=== PATIENT | female | born 1995 | race Caucasian/White ===

== ENCOUNTER → 2017-07-11 | Outpatient (CLI) | payer BC ==
[~2017-07-11] MED LIST: BCPILLS PO; CETI10TA84 PO; MONT1TAB3 PO
--- NOTE | 2017-07-11 08:44 | DIAGNOSTIC IMAGING REPORT ---
MRI OF THE LEFT ELBOW WITHOUT IV CONTRAST CLINICAL HISTORY: Left elbow pain. COMPARISON STUDY: Radiographs of left elbow dated 07/07/2017. TECHNIQUE: MRI of the left elbow is performed utilizing various T1 and T2-weighted sequences in the axial, sagittal, and coronal planes. IV contrast was not administered for this examination. FINDINGS: There is no MRI evidence of fracture. Bony contusion is seen within the lateral humeral epicondyle. The joint spaces are preserved. The articular cartilage appears intact. No joint effusion is identified. The triceps tendon at its insertion appears intact, as does the long head of the biceps tendon. The common extensor tendon and the radial collateral ligament appear maintained. There is full-thickness rupture of the ulnar collateral ligament at the humeral insertion. There is partial-thickness tearing of the common flexor tendon. The majority of the fibers are intact. The regional musculature is normal in bulk. There is intramuscular edema seen within the flexor musculature adjacent to the medial joint space. Mild overlying soft tissue edema is present in the medial elbow. No joint body is clearly identified. Small calcifications seen by x-ray likely represent dystrophic calcifications. IMPRESSION: 1. There is no MRI evidence of left elbow fracture. Bony contusion is noted within the lateral humeral epicondyle. 2. There has been rupture of the ulnar collateral ligament at the humeral insertion. 3. There is partial thickness tearing of the common flexor tendon. The majority of the fibers remain intact. 4. Intramuscular edema is seen within the flexor musculature along the medial aspect of the joint space. There is also mild overlying soft tissue edema. Dictated: 07/11/2017 8:10 AM Transcribed: 07/11/2017 8:43 AM [employer] Electronically signed by: Andrés Mejia M.D. 07/11/2017 8:53 AM Dictated Date/Time: 07/11/2017 8:10 AM
== END | disposition home or self-care (01) ==
LOC: C.MRIBC 07:06
PROVIDERS: ATTEND Orthopaedic Surgery
DX: S53.32XA Traumatic rupture of left ulnar collateral ligament, initial encounter (principal); S56.212A Strain of other flexor muscle, fascia and tendon at forearm level, left arm, initial encounter; X58.XXXA Exposure to other specified factors, initial encounter; R60.0 Localized edema

== ENCOUNTER 2017-10-05 14:40 | Emergency (ER) | payer BC ==
[~2017-10-05] VITALS: Ht 160 cm; Wt 68.9 kg
[2017-10-05 14:52] VITALS: TEMP 36.9; Ht 160 cm; Wt 68.9 kg
--- NOTE | 2017-10-05 15:03 | EMERGENCY ROOM VISIT NOTE ---
ED Visit Note First contact with patient: 15:00 CHIEF COMPLAINT: Toe injury today HISTORY OF PRESENT ILLNESS: This 22-year-old female presents to the emergency department with complaint of right great toe pain. She states that she stubbed her toe while walking up steps last night, with immediate bleeding from the toe. She reports several injuries to this toe in the past from either stopping the toe or the toe being stepped on, most recently 1 week ago. She states after stubbing her toe that the nail seemed to be loose. There is pain with weight bearing but she is able to move the toe fairly normally. The toenail is at the base. The bleeding has stopped. Her tetanus is up-to-date. She denies any other associated injuries, denies foot or ankle pain, knee pain, hip pain, dizziness or syncope, fevers or chills. REVIEW OF SYSTEMS: A complete 6 point review of systems was reviewed with the patient with pertinent positives and negatives as per history of present illness. All else were negative. PMH: The patient is healthy; there is no significant medical or surgical history. SOCIAL HISTORY: Patient lives at home. She is a [employer] student. She denies tobacco use. PHYSICAL EXAM: Vital Signs: Reviewed Nurse's notes. The ankle joint is not swollen or tender. The foot is not swollen and the skin is intact. The right great toe is slightly swollen and tender along the shaft from the DIP joint to the tip and the nail is avulsed at the base. There is no active bleeding and no significant laceration. IMAGING: R TOE(S) MIN 2 VIEWS HISTORY: 22 years-old Female right great toenail avulsion, eval fx acute right great toe pain status post trauma COMPARISON: None available TECHNIQUE: 3 views of the right toes with attention to the first digit FINDINGS: A true lateral film was not obtained. Lucency beneath the nailbed suggest nailbed injury. No acute fracture, subluxation or significant degenerative changes. No opaque foreign body. IMPRESSION: 1. Suggested acute nailbed injury. 2. No acute fracture or subluxation. EMERGENCY DEPARTMENT COURSE: I examined the patient. Differential diagnosis includes toenail avulsion, nail bed laceration, open fracture, contusion, subungual hematoma, among others. An X-Ray of the toe is negative for fractures. I obtained verbal consent from the patient to perform the procedure. The base of the toe was cleansed with saline and Betadine, and a digital block of the right great toe was performed utilizing 1% buffered lidocaine. Once complete anesthesia was achieved, the nail plate was lifted up off of the nail bed. There is avulsed tissue of the nailbed, but no visible laceration and nothing to repair. The nailbed was copiously irrigated and this toenail was cleaned, the nail plate was then replaced under the nail fold in its anatomic position and tacked down on either side with 5-0 nylon suture. Hemostasis was achieved. The entire nail and toe was then irrigated with saline. The toe was then dressed with bacitracin and an occlusive dressing. Patient tolerated the procedure well with no complication. Patient was educated regarding wound care and concerning signs/symptoms to watch for, and encouraged to follow closely with her primary care provider, she verbalized understanding. The patient was discharged home in stable condition and ambulatory. Current/Historical Medications Scheduled Cetirizine (Zyrtec), 10 MG PO QAM Scheduled PRN Albuterol Hfa (Ventolin Hfa), 2 PUFFS INH Q6H PRN for SOB/Wheezing Allergies Coded Allergies: No Known Allergies (Unverified , 10/27/14) Vital Signs Date Time Temp Pulse Resp B/P (MAP) Pulse Ox O2 Delivery O2 Flow Rate FiO2 10/05/17 17:28 78 18 121/99 95 Room Air 10/05/17 15:28 90 18 116/79 99 Room Air 10/05/17 14:52 36.9 116 18 130/91 98 Room Air Medications Administered Medications (Trade) Dose Ordered Sig/Gregorio Route Start Time Stop Time Status Last Admin Dose Admin Ibuprofen (Motrin Tab) 600 mg NOW STAT PO 10/05/17 15:10 10/05/17 15:12 DC 10/05/17 15:30 600 MG Departure Information Impression Primary Impression: Toenail avulsion Dispostion Home / Self-Care Condition GOOD Referrals No Doctor, Assigned (PCP) Patient Instructions ED Avulsion Nail Complete, My [facility] Additional Instructions Stay off the foot as much as possible and keep it elevated. Ibuprofen 600mg every 6-8 hours as needed for the pain. Change the dressing daily and watch for signs of infection. Leave the nail plate on until seeing your Primary Care Provider in about 4 - 5 days. The sutures should be removed in 7 days. Please return to the ER for any signs of infection, including increasing pain, redness, swelling, pus drainage, streaking up the foot, fevers/chills, or any other concerns. Problem Qualifiers Primary Impression: Toenail avulsion Encounter type: initial encounter Qualified Codes: S91.209A - Unspecified open wound of unspecified toe(s) with damage to nail, initial encounter
[2017-10-05] MEDS ORDERED: IBUPROFEN 600 MG TAB PO STA (15:10)
[2017-10-05] MEDS ORDERED: XYLOCAINE 1%/SOD BICARB 20 ML VIAL INFIL ONE (15:15)
[2017-10-05] MEDS ORDERED: VNTHFA/IN INH (15:45)
--- NOTE | 2017-10-05 16:05 | DIAGNOSTIC IMAGING REPORT ---
R TOE(S) MIN 2 VIEWS HISTORY: 22 years-old Female right great toenail avulsion, eval fx acute right great toe pain status post trauma COMPARISON: None available TECHNIQUE: 3 views of the right toes with attention to the first digit FINDINGS: A true lateral film was not obtained. Lucency beneath the nailbed suggest nailbed injury. No acute fracture, subluxation or significant degenerative changes. No opaque foreign body. IMPRESSION: 1. Suggested acute nailbed injury. 2. No acute fracture or subluxation. The above report was generated using voice recognition software. It may contain grammatical, syntax or spelling errors. Electronically signed by: Tian Mauricio M.D. 10/05/2017 4:04 PM Dictated Date/Time: 10/05/2017 4:03 PM
[2017-10-05 17:28] VITALS: BP 121/99; PULSE 78; O2SAT 95
== END 2017-10-05 17:47 | disposition home or self-care (01) ==
LOC: C.EDB 14:44 → C.EDD 17:47
DX: S91.209A Unspecified open wound of unspecified toe(s) with damage to nail, initial encounter (principal)